=== PATIENT | male | born 1960 | race Caucasian/White ===

== ENCOUNTER → 2019-06-01 | Day surgery (SDC) | payer OTHER ==
--- NOTE | 2019-05-31 14:27 | Diagnostic Imaging Report ---
EXAMINATION: CHEST 2 VIEWS INDICATION: Pre-admit. COMPARISON: None FINDINGS: TUBES and LINES: None. LUNGS: Lungs are moderately inflated. There is no evidence of pneumonia or pulmonary edema. There is biapical pleural-parenchymal opacity. PLEURA: No pleural effusion or pneumothorax. HEART AND MEDIASTINUM: The cardiomediastinal silhouette is unremarkable. BONES AND SOFT TISSUES: No acute osseous abnormality. UPPER ABDOMEN: No free air under the diaphragm. IMPRESSION: No acute radiographic abnormality. Signed by: Dr. Maral Mares MD on 05/31/2019 2:23 PM
--- NOTE | 2019-05-31 21:10 | Pre Op History & Physical ---
CHIEF COMPLAINT: Right tonsil and tongue base mass. HISTORY OF PRESENT ILLNESS: This 58-year-old male was noted to have a lesion in the tonsil area for a few weeks. The patient denies any dysphagia, odynophagia, or shortness of breath. The patient has no hoarseness. The patient dip a can of tobacco per week and has a 40 to 50 pack-year smoking history. He stopped smoking in May of 2018. The patient is a social drinker. The patient was noted to have a lesion in the right tonsil area and also question both tongue base on the right side. CT scan of the neck that was ordered after the patient was seen, showed the patient has a 2 x 1 x 1 cm hypodense lesion involving the palatine tonsil and right tongue base. Malignancy cannot be ruled out. No cervical lymphadenopathy was noted on the CT scan of the neck. REVIEW OF SYSTEMS: System review showed no recent cardiovascular, respiratory, or GI problem. PAST MEDICAL HISTORY: The patient has no significant medical problem. PAST SURGICAL HISTORY: He has no previous surgery. ALLERGIES: HE HAS NO KNOWN ALLERGIES. MEDICATION: He is on meloxicam, tizanidine, hydrocodone and morphine. SOCIAL HISTORY: The patient has a 50 pack year smoking history and dip about a can of tobacco per week. He is a social drinker. FAMILY HISTORY: Noncontributory. PHYSICAL EXAMINATION: VITAL SIGNS: On examination, the patient's vital signs were within normal limits. He was seen with his . HEENT: Ear exam showed normal tympanic membranes bilaterally. Nasal exam showed hypertrophy of the inferior turbinate. Oropharynx and oral cavity show right tonsil mass involving the inferior portion of the tonsil and tongue base. Nasal endoscopy showed mobile vocal cords bilaterally with no lesion of the hypopharynx and tongue base lesion was noted on the right side. NECK: Showed no lymph node or thyroid palpable. CHEST: Showed good air entry bilaterally. CARDIOVASCULAR: Showed S1 and S2. No murmur noted. ASSESSMENT AND PLAN: Mr. Curtis has right tonsil and right tongue base lesion according to the patient in a few weeks. The patient is a smoker. Suggested treatment is panendoscopy, right tonsillectomy, biopsy of the tongue base and other necessary procedure. Complication of procedure includes, but not limited to bleeding, infection, hyponasal speech, nasal regurgitation of food, airway distress, recurrence of the sore throat along with perforation of esophagus, pneumomediastinum, mediastinitis, airway compromise, persistent recurrence of the problem. The alternatives will be continue observation, biopsy of lesion in the office setting. The patient has elected to undergo surgical procedure. MD ASHWIN Whalen/MODL /[id number]
[~2019-06-01] MED LIST: ACETAMINOPHEN 1000 MG/100 ML IV ONE; BC POWDER PACK1 EAC1 PO; BUPIVACAINE 0.5%/EPI 30 ML SDV INJ ONE; CALCET TABLET1 EACH PO; CETIRIZINE HCL10 MG PO; DESFLURANE 240 ML BTL INH ONE; DEXAMETHASONE SOD PHOS INJ 4 MG/ML VIAL ONE; FENTANYL CITRATE/PF 100MCG/2 ML INJ ONE; FISH OIL 1,2001 EACH PO; GLYCOPYRROLATE INJ 1MG/ 5 ML SYR ONE; LIDOCAINE HCL 2% LOCAL INJ 5 ML SDV VIAL INJ ONE; MELOXICAM7.5 MG PO; MIDAZOLAM HCL 2 MG/2 ML VIAL ONE; NEOSTIGMINE 5 MG/5ML SYR ONE; NORCO 5-325 TA1 EACH PO; ONDANSETRON HCL INJ 2MG/ML 2ML 2 MG/ML VIAL ONE; OXYMETAZOLINE HCL 0.05% NAS 1 SPRAY BTL ONE; PROPOFOL IV EMULSION 10 MG/ML 20 ML VIAL ONE; ROCURONIUM BROMIDE 10 MG/ML 5ML VIAL ONE; TIZANIDINE HCL4 MG PO; VIT D3 PO; [UNRECOGNIZED DRUG - OTHER] PO
--- OUTSIDE RECORDS SUMMARY | 2019-06-01 05:12 | XMS REPORT ---
Author Author [facility] Address Unknown Phone Unavailable Care Team Providers Care Siebel Developer Name Role Phone Renetta ROBLES Unavailable Unavailable Problems This patient has no known problems. Allergies, Adverse Reactions, Alerts This patient has no known allergies or adverse reactions. Medications This patient has no known medications. Results Test Description Test Time Test Comments Text Results Atomic Results Result Comments CHEST 2 VIEWS 2019-05-31 14:21:00 [place] [address] Patient Name: BALTAZAR HOGAN MR #: [id number] : 1960 Age/Sex: 58/M Req #: [id number] Adm Physician: Ordered by: KIMBERLI ROBLES MD Report #: [id number] Location: OR Room/Bed: Procedure: [id number] DX/CHEST 2 VIEWS Exam Date: 05/31/19 Exam Time: 1400 REPORT STATUS: Signed EXAMINATION: CHEST 2 VIEWS INDICATION: Pre-admit. COMPARISON: None FINDINGS: TUBES and LINES: None. LUNGS: Lungs are moderately inflated. There is no evidence of pneumonia or pulmonary edema. There is biapical pleural-parenchymal opacity. PLEURA: No pleural effusion or pneumothorax. HEART AND MEDIASTINUM: The cardiomediastinal silhouette is unremarkable. BONES AND SOFT TISSUES: No acute osseous abnormality. UPPER ABDOMEN: No free air under the diaphragm. IMPRESSION: No acute radiographic abnormality. Signed by: Dr. Geovanna Dodd MD on 05/31/2019 2:23 PM Dictated By: GEOVANNA DODD MD [id number] Transcribed By: STEPHANIE on 05/31/19 1421 COPY TO: KIMBERLI ROBLES MD
--- NOTE | 2019-06-01 07:10 | NUR ---
SPIRITUAL CARE - Pre-Surgery Assessment: Pt in bed. Pt's at bedside. Pt reported supportive attention from family and friends. Intervention: I provided pastoral presence, hospitality, sympathetic listening, and prayer. I acquainted pt with availability of precipitator while hospitalized. Outcome: Pt expressed appreciation for visit. No need for follow up indicated at this time. HARISH CASTILLO Air Support Operations Operator Spiritual Care Department O: [phone] Pager: [phone] ([phone] number calling from)
[2019-06-01 09:35] VITALS: BP 122/91
--- NOTE | 2019-06-01 10:18 | Operative Report ---
DATE OF PROCEDURE: 06/01/2019 SURGEON: Geovani Pedro MD CHIEF COMPLAINT: Right tonsillar mass and right tongue base mass. POSTOPERATIVE DIAGNOSES: Right tonsillar mass and right tongue base mass. OPERATIVE PROCEDURE: Direct laryngoscopy, rigid esophagoscopy, rigid bronchoscopy, biopsy of right and left tongue base, right tonsillectomy. ANESTHESIA: Anesthesiology group. INDICATIONS: This 58-year-old male has a few-week history of right tonsillar mass. The patient denies any dysphagia, odynophagia, or hoarseness. The patient has no otalgia. The patient has a [id number] smoking history and stopped about a year ago. He still dips tobacco about a can a week. The patient is a social drinker. On examination, he was noted to have a lesion in the right tonsil and lesion in the right tongue base. A CT scan of the neck showed the patient has right tonsillar and right tongue base mass. No neck lymphadenopathy was noted. It was decided that panendoscopy, right tonsillectomy and biopsy and other necessary procedure will be beneficial for him. DESCRIPTION OF PROCEDURE: The patient was taken to the operating room, put under general anesthesia, endotracheally intubated. The tonsillectomy was performed first. The patient was put in a Shawna position and McIvor mouth gag was inserted. The right tonsil fossas were injected with 0.5% Marcaine with 1:200,000 epinephrine. The tonsil on the right side was from the tonsillar base and dissected off. This was snared off. This was sent for pathology. Next, the hemostasis in tonsillar fossas was achieved using the suction cautery. The tonsillar fossas were injected with 0.5% Marcaine with 1:200,000 epinephrine. The panendoscopy was performed. The patient was repositioned. The rigid esophagoscopy was performed. Esophagoscope was passed through the cricopharyngeus muscle. Esophagus was examined to about 25 cm from the incisors, no abnormality was noted. The esophagoscope was retrieved. The rigid bronchoscopy was performed. A size #4 bronchoscope with [place] wire was used. The bronchoscope was passed parallel to the endotracheal tube, endotracheal tube cuff was deflated, trachea was examined down to the derrick, no abnormality was noted. The bronchoscope was retrieved. The endotracheal tube cuff was reinflated. The direct laryngoscopy was performed. The Dedo laryngoscope was used. The oropharynx and oral cavity were examined. Increased tissue was noted in the right tongue base. This was biopsied and sent for pathology. The left tongue base was also biopsied. Piriform sinus on either side was examined, no abnormality was noted. The larynx, both the true and false vocal folds were examined, no obvious abnormality was noted. The patient tolerated the above procedure well with estimated blood loss of about 20 mL. He was given 20 mg of Decadron intraoperatively. The patient was able to be transferred to recovery room in stable condition. MD ASHWIN Whalen/SIDNEY /[id number] cc: Connie Marie
== END | disposition home or self-care (01) ==
LOC: OR 05:10
PROVIDERS: ATTEND Otolaryngology Otolaryngology/Facial Plastic Surgery
DX: J35.8 Other chronic diseases of tonsils and adenoids (principal); K14.8 Other diseases of tongue; A42.9 Actinomycosis, unspecified; K21.9 Gastro-esophageal reflux disease without esophagitis; F41.9 Anxiety disorder, unspecified; F17.220 Nicotine dependence, chewing tobacco, uncomplicated; Z01.810 Encounter for preprocedural cardiovascular examination; Z01.818 Encounter for other preprocedural examination; Z79.82 Long term (current) use of aspirin
CPT/HCPCS: 31535; 31622; 42826; 43191; 71046; 88305; 88331; 93005; J0131; J1100; J2001; J2250; J2405; J2704; J3490; 88304; J3010